=== PATIENT | female | born 1990 | race Caucasian/White ===

== ENCOUNTER 2019-07-25 18:28 | Emergency (ER) | payer SELFPAY ==
[~2019-07-25] VITALS: Ht 167.6 cm; Wt 55.3 kg
--- OUTSIDE RECORDS SUMMARY | ~2019-07-25 | XMS | Encounter Summary ---
Demographics + + + | Address | [address] | | | [place] [address] | + + + | Home Phone | | + + + | Preferred Language | Unknown | + + + | Marital Status | Single | + + + | Jehovah'S Witness Affiliation | Unknown | + + + | Race | Unknown | + + + | Ethnic Group | Unknown | + + + Author + + + | Author | [facility] | | | and [place] | + + + | Organization | [facility] | | | and [place] | + + + | Address | Unknown | + + + | Phone | Unavailable | + + + Support + + +---------+ + | Name | Relationship | Address | Phone | + + +---------+ + | Donny Pump | ECON | Unknown | | + + +---------+ + Care Team Providers + +------+ + | Care Emergency Department Rn Name | Role | Phone | + +------+ + | No, Physician | PCP | Unavailable | + +------+ + Reason for Visit + + + | Reason | Comments | + + + | Eye Problem | Rm4; poss pink eye? dry eye? related to makeup? x 2 weeks; | | | redness and swelling, itchy; states there are little red dots | | | inside eyelids | + + + Encounter Details +--------+---------+ + + + | Date | Type | Department | Care Team | Description | +--------+---------+ + + + | 02/06/ | Office | [facility] | Meredith aWng | Allergic rhinitis, | | 2017 | Visit | [facility] [address] | Jorge Luis Meier MD | unspecified allergic | | | | [place] | [address] | rhinitis trigger, | | | | [address] | [place] | unspecified rhinitis | | | | [phone] | [id number] | seasonality | | | | | | (Primary Dx); Acute | | | | | | conjunctivitis of | | | | | | both eyes, | | | | | | unspecified acute | | | | | | conjunctivitis type | +--------+---------+ + + + Social History + +-------+ +--------+------+ | Tobacco Use | Types | Packs/Day | Years | Date | | | | | Used | | + +-------+ +--------+------+ | Never Smoker | | | | | + +-------+ +--------+------+ + +---+---+---+ | Smokeless Tobacco: | | | | | Never Used | | | | + +---+---+---+ + + +---------+ + | Alcohol Use | Drinks/Week | oz/Week | Comments | + + +---------+ + | Not Asked | 0 Standard drinks | 0.0 | | | | or equivalent | | | + + +---------+ + + + + | Sex Assigned at | Date Recorded | | | | + + + | Not on file | | + + + + + + + | Job Start Date | Occupation | Industry | + + + + | Not on file | Not on file | Not on file | + + + + + + + + | Travel History | Travel Start | Travel End | + + + + + + | No recent travel history available. | + + documented as of this encounter Last Filed Vital Signs + + + + + | Vital Sign | Reading | Time Taken | Comments | + + + + + | Blood Pressure | 104/64 | 02/06/2017 6:52 PM | | | | | PDT | | + + + + + | Pulse | 72 | 02/06/2017 6:52 PM | | | | | PDT | | + + + + + | Temperature | 37.7 C (99.9 F) | 02/06/2017 6:52 PM | | | | | PDT | | + + + + + | Respiratory Rate | 16 | 02/06/2017 6:52 PM | | | | | PDT | | + + + + + | Oxygen Saturation | 96% | 02/06/2017 6:52 PM | | | | | PDT | | + + + + + | Inhaled Oxygen | - | - | | | Concentration | | | | + + + + + | Weight | 55.3 kg (122 lb) | 02/06/2017 6:52 PM | | | | | PDT | | + + + + + | Height | 167.6 cm (5' 6") | 02/06/2017 6:52 PM | | | | | PDT | | + + + + + | Body Mass Index | 19.69 | 02/06/2017 6:52 PM | | | | | PDT | | + + + + + documented in this encounter Patient Instructions Patient Instructions Meredith Wang Jr., MD - 02/06/2017 6:45 PM PDTDo not wear y our contacts until your eyes her back to normal for 3 days Follow-up with your doctor or the clinic if not improving in 5 days. Take medication as directed Increase fluid intake Recheck sooner, in the clinic, with your doctor or in the ER, if your symptoms worsen or ne w problems develop 7: 19 PM PDT documented in this encounter Progress Notes Meredith Wang Jr., MD - 02/06/2017 6:45 PM PDTMelkiara Guadalupe Chief Complaint: Eye irritation and drainage bilaterally HPI: 2 weeks ago the patient develop sneezing and itchy eyes with some swelling. She wear s contacts. She then developed yellow-green purulent drainage. He has no foreign body feel ing. She has minimal photophobia. She has no history of corneal ulcers or keratitis. She is currently wearing her glasses Past medical history, past surgical history, medication reviewed. Physical Exam: No acute distress, alert and oriented, non-toxic in appearance BP 104/64 | Pulse 72 | Temp 37.7 C (99.9 F) (Temporal) | Resp 16 | Ht 1.676 m (5' 6 ") | Wt 55.3 kg (122 lb) | SpO2 96% | ? No | BMI 19.69 kg/m Nose: Mildly congested Throat: No erythema or exudate Neck: Supple without stridor or adenopathy Eyes: EOMs intact, PERRLA, conjunctiva injection, no foreign body found, minimal photophobi a, corneas are clear with slit lamp exam and the anterior chambers are clear, retina is show no hemorrhages or exudates Diagnosis: Allergic rhinitis, bilateral bacterial conjunctivitis Plan: Nasonex, Ocuflox Follow-up with your doctor or the clinic if not improving in 5 days. Take medication as directed Increase fluid intake Recheck sooner, in the clinic, with your doctor or in the ER, if your symptoms worsen or ne w problems develop This note dictated with [place] and was not proofread. Monica fountain in this encounter Plan of Treatment Not on filedocumented as of this encounter Visit Diagnoses + + | Diagnosis | + + | Allergic rhinitis, unspecified allergic rhinitis trigger, unspecified rhinitis | | seasonality - Primary | + + | Acute conjunctivitis of both eyes, unspecified acute conjunctivitis type | + + documented in this encounter
--- OUTSIDE RECORDS SUMMARY | ~2019-07-25 | XMS | Encounter Summary ---
Demographics + + + | Address | [address] | | | [place] [address] | + + + | Home Phone | | + + + | Preferred Language | Unknown | + + + | Marital Status | Single | + + + | Church Affiliation | Unknown | + + + | Race | Unknown | + + + | Ethnic Group | Unknown | + + + Author + + + | Author | [facility] | | | and [place] | + + + | Organization | [facility] | | | and [...] Team Providers + +------+ + | Care Supervisor [facility]ality [facility] Name | Role | Phone | + +------+ + | No, Physician | PCP | Unavailable | + +------+ + Reason for Visit + + + | Reason | Comments | + + + | Urticaria | RM # 3 - Hives, sore throat, headaches, cough, bodyaches X 4 days | + + + Encounter Details +--------+---------+ + + + | Date | Type | Department | Care Team | Description | +--------+---------+ + + + | 10/16/ | Office | [facility] | Meredith Wang | Pharyngitis (Primary | | 2016 | Visit | [facility] [address] | Jorge Luis Meier MD | Dx); Bronchitis; | | | | [place] | [address] | [place] | | | | [address] | [place] | | | | | [phone] | [address] | | | | | | | | +--------+---------+ + + + Social History [...] + + + | Blood Pressure | 144/73 | 10/17/2015 1:43 PM | | | | | PDT | | + + + + + | Pulse | 98 | 10/17/2015 1:43 PM | | | | | PDT | | + + + + + | Temperature | 36.8 C (98.2 F) | 10/17/2015 1:43 PM | | | | | PDT | | + + + + + | Respiratory Rate | 16 | 10/17/2015 1:43 PM | | | | | PDT | | + + + + + | Oxygen Saturation | 99% | 10/17/2015 1:43 PM | | | | | PDT | | + + + + + | Inhaled Oxygen | - | - | | | Concentration | | | | + + + + + | Weight | 56.9 kg (125 lb 8 | 10/17/2015 1:43 PM | | | | oz) | PDT | | + + + + + | Height | 170.2 cm (5' 7") | 10/17/2015 1:43 PM | | | | | PDT | | + + + + + | Body Mass Index | 19.66 | 10/17/2015 1:43 PM | | | | | PDT | | + + + + + documented in this encounter Patient Instructions Patient Instructions Meredith Wang Jr., MD - 10/17/2015 2:10 PM PDTStop the NyQu il Right down everything you can remember being exposed to in the 24 hours prior to the appear ance of the rash Follow-up with your doctor or the clinic if not improving in 5 days. Take medication as directed Increase fluid intake Recheck sooner, in the clinic, with your doctor or in the ER, if your symptoms worsen or ne w problems develop 2: 11 PM PDT documented in this encounter Progress Notes Meredith Wang Jr., MD - 10/17/2015 2:04 PM PDTKira Guadalupe developed sore throat and a nonproductive cough 5 days ago. 4 days ago she developed an urticarial rash w hich improves with Benadryl but then recurs. She has no past history of urticaria. She has not had any medicine exposures other than NyQuil. She is unaware of other exposures. She has been around sick coworkers but is specifically unaware of any strep exposure. Exam: No distress, non-toxic in appearance BP 144/73 mmHg | Pulse 98 | Temp(Src) 36.8 C (98.2 F) (Temporal) | Resp 16 | Ht 1.702 m (5' 7") | Wt 56.926 kg (125 lb 8 oz) | BMI 19.65 kg/m2 | SpO2 99% | ? No Skin: Urticarial rash on the trunk sparing the palms, no conjunctival injection Nose: clear Ears: TM's not inflamed Throat: erythema, no exudate Neck: Supple, no stridor, no adenopathy Chest: No rales, no rhonchi, no wheezes, good breath sounds bilaterally, no respiratory di stress Heart: Regular rhythm, no murmur, no gallop, no rub Diagnosis: Pharyngitis, bronchitis, urticaria Plan: Zithromax, Zyrtec, avoid NyQuil, keep an exposure long, recheck in 5 days if not impr oving docu mented in this encounter Plan of Treatment Not on filedocumented as of this encounter Visit Diagnoses + + | Diagnosis | + + | Pharyngitis - Primary Acute pharyngitis | + + | Bronchitis Bronchitis, not specified as acute or chronic | + + | Urticaria Urticaria, unspecified | + + documented in this encounter
--- OUTSIDE RECORDS SUMMARY | ~2019-07-25 | XMS | Clinical Summary ---
Demographics + + + | Address | [address] | | | [place] [address] | + + + | Home Phone | | + + + | Preferred Language | Unknown | + + + | Marital Status | Single | + + + | Sikhism Affiliation | Unknown | + + + | Race | Unknown | + + + | Ethnic Group | Unknown | + + + Author + + + | Author | [facility] | | | and [place] | + + + | Organization | [facility] | | | and [...] Team Providers + +------+ + | Care Ship Boat Or Barge Mate Name | Role | Phone | + +------+ + | No, Physician | PCP | Unavailable | + +------+ + Allergies No Known Allergies Medications + + + +---------+------+------+-------+ | Medication | Sig | Dispensed | Refills | Star | End | Statu | | | | | | t | Date | s | | | | | | Date | | | + + + +---------+------+------+-------+ | fluticasone | 1 spray by Nasal | 16 g | 1 | 07/1 | | Activ | | (FLONASE) 50 | route 2 times daily. | | | 0/20 | | e | | mcg/nasal | | | | 17 | | | | sprayIndications: | | | | | | | | Allergic rhinitis, | | | | | | | | unspecified allergic | | | | | | | | rhinitis trigger, | | | | | | | | unspecified rhinitis | | | | | | | | seasonality | | | | | | | + + + +---------+------+------+-------+ Active Problems No known active problems Social History + +-------+ +--------+------+ | Tobacco [...] recent travel history available. | + + Last Filed Vital Signs + + + [...] | | + + + + + Plan of Treatment + + + + + | Health Maintenance | Due Date | Last Done | Comments | + + + + + | Vaccine: | | | | | Dtap/Tdap/Td (1 - | 0 | | | | Tdap) | | | | + + + + + | Cervical Cancer | | | | | Screening (Pap) | 9 | | | + + + + + | Vaccine: Influenza | | | | | (#1) | 9 | | | + + + + + Results Not on filefrom Last 3 Months Advance Directives + + + + + | Type | Date Recorded | Patient | Explanation | | | | Refrigeration Plant Operator | | + + + + + | Power of | | | | | Printed Forms Proofreader | | | | + + + + + | Advance | | | | | Directive | | | | + + + + +
--- OUTSIDE RECORDS SUMMARY | ~2019-07-25 | XMS | Encounter Summary ---
Demographics + + + | Address | [address] | | | [place] [address] | + + + | Home Phone | | + + + | Preferred Language | Unknown | + + + | Marital Status | Single | + + + | Caodaism Affiliation | Unknown | + + + | Race | Unknown | + + + | Ethnic Group | Unknown | + + + Author + + + | Author | [facility] | | | and [place] | + + + | Organization | [facility] | | | [...] Team Providers + +------+ + | Care Floral Merchandiser Name | Role | Phone | + [...] + + | 10/16/ | Office | [facility] | Meredith Wang | Pharyngitis (Primary | | 2016 | Visit | [facility] [address] | Jorge Luis Meier MD | Dx); Bronchitis; | | | | [place] | [address] | [place] | | | | [address] | [place] | | | | | [phone] | [address] | | | | | | | [...]
--- OUTSIDE RECORDS SUMMARY | ~2019-07-25 | XMS | Encounter Summary ---
Demographics + + + | Address | [address] | | | [place] [address] | + + + | Home Phone | | + + + | Preferred Language | Unknown | + + + | Marital Status | Single | + + + | Latter Day Affiliation | Unknown | + + + | Race | Unknown | + + + | Ethnic Group | Unknown | + + + Author + + + | Author | [facility] | | | and [place] | + + + | Organization | [facility] | | | and [place] | + [...] Team Providers + +------+ + | Care Salesperson Shoes Name | Role | Phone | + [...] + + | 02/06/ | Office | [facility] | Meredith Wang | Allergic rhinitis, | | 2017 | Visit | [facility] [address] | Jorge Luis Meier MD | unspecified allergic | | | | [place] | [address] | rhinitis trigger, | | | | [address] | [place] | unspecified rhinitis | | | | [phone] | [address] | seasonality | | | | | [...]
--- OUTSIDE RECORDS SUMMARY | ~2019-07-25 | XMS | Clinical Summary ---
Demographics + + + | Address | [address] | | | [place] [address] | + + + | Home Phone | | + + + | Preferred Language | Unknown | + + + | Marital Status | Single | + + + | Quaker Affiliation | Unknown | + + + | Race | Unknown | + + + | Ethnic Group | Unknown | + + + Author + + + | Author | [facility] | | | and [place] | + + + | Organization | [facility] | | | [...] Team Providers + +------+ + | Care Mobile Product Manager Name | Role | Phone | + [...] Patient | Explanation | | | | Cargoman | | + + + + + | Power of | | | | | Equipment Validation Engineer | | | | + + + + + | Advance | | | | | Directive | | | | + + + + +
== END 2019-07-25 21:07 | disposition home or self-care (01) ==
LOC: ED 18:28
DX: R10.9 Unspecified abdominal pain (principal); Z87.891 Personal history of nicotine dependence
CPT/HCPCS: 81001; 99284